=== PATIENT | male | born 1980 ===

== ENCOUNTER 2017-05-28 07:22 | Inpatient (IN) | payer OTHER ==
--- NOTE | 2017-05-28 07:30 | C.PDOC ---
History Of Present Illness 36M c/o constant right side abdominal pain since last night around 8pm. no exac or reliev fx. +nausea and vomiting x1. constipation no diarrhea. last food/ drink last night 7pm. denies any pmh, psh, meds, allergies. Time Seen by Provider: 05/28/17 07:30 Chief Complaint (Nursing): Abdominal Pain Past Medical History Vital Signs: Last Vital Signs Temp 97.7 F 05/30/17 15:00 Pulse 82 05/30/17 15:00 Resp 20 05/30/17 15:00 BP 118/72 05/30/17 15:00 Pulse Ox 97 05/30/17 15:00 Family History: States: Other Other Family History: nc - Social History Hx Alcohol Use: Yes Hx Substance Use: No - Immunization History Hx Tetanus Toxoid Vaccination: No Hx Influenza Vaccination: No Hx Pneumococcal Vaccination: No Review Of Systems Except As Marked, All Systems Reviewed And Found Negative. Constitutional: Positive for: Malaise. Negative for: Fever, Sweats Cardiovascular: Negative for: Chest Pain Respiratory: Negative for: Cough, Shortness of Breath Gastrointestinal: Positive for: Nausea, Vomiting, Abdominal Pain, Constipation. Negative for: Diarrhea Genitourinary: Negative for: Dysuria, Hematuria Physical Exam - Physical Exam Appears: Well, Non-toxic, No Acute Distress Skin: Warm, Dry Head: Atraumatic Eye(s): bilateral: PERRL Nose: No Epistaxis Oral Mucosa: Moist Neck: Normal ROM Cardiovascular: Rhythm Regular Respiratory: No Decreased Breath Sounds, No Accessory Muscle Use Gastrointestinal/Abdominal: Soft, Tenderness (right side, mainly RLQ), No Distention, No Guarding, No Rebound Back: CVA Tenderness (right side) Extremity: No Swelling Neurological/Psych: Oriented x3, Normal Motor, Normal Sensation ED Course And Treatment - Laboratory Results Result Diagrams: 05/29/17 07:26 05/29/17 07:26 O2 Sat by Pulse Oximetry: 98 - CT Scan/US CT abd/pel Other Rad Studies (CT/US): Read By Radiologist, Radiology Report Reviewed CT/US Interpretation: PROCEDURE: CT Abdomen and Pelvis with contrast. HISTORY : Abdominal pain. COMPARISON: None. TECHNIQUE: CT scan of the abdomen and pelvis was performed after intravenous administration of contrast. Oral contrast was not administered. Coronal and sagittal reformatted images were obtained. Contrast dose: 100 mL Visipaque. Radiation dose: Total exam DLP = 507.02 mGy-cm. This CT exam was performed using one or more of the following dose reduction techniques: Automated exposure control, adjustment of the mA and/ or kV according to patient size, and/or use of iterative reconstruction technique. FINDINGS: LOWER THORAX: There is bibasilar subsegmental atelectasis. LIVER: The liver is normal in size and there is homogeneous enhancement. No intrahepatic biliary ductal dilatation. . No gross lesion or ductal dilatation. GALLBLADDER AND BILE DUCTS: There is a solitary large gallstone. The gallbladder is distended without wall thickening or pericholecystic fluid. PANCREAS: The pancreas is normal in size and there is homogeneous enhancement without ductal dilatation or focal mass. SPLEEN: The spleen is normal in size and there is homogeneous enhancement without focal lesion. ADRENALS: Both adrenal glands are normal in size without discrete nodule. KIDNEYS AND URETERS: Both kidneys are normal in size and there is homogeneous enhancement without hydronephrosis. There is a subcentimeter simple cyst in the left lower pole. VASCULATURE: Normal in appearance. No aortic aneurysm. BOWEL: The small bowel loops are normal in caliber. There is moderate amount of stool in the ascending and transverse colon. The left hemicolon is decompressed. APPENDIX: Normal appendix. PERITONEUM: No free fluid. No free air. LYMPH NODES: No enlarged lymph nodes. BLADDER: Unremarkable. REPRODUCTIVE: Unremarkable. BONES: No acute fracture. Within normal limits for the patient's age. OTHER FINDINGS: None. IMPRESSION: Gallbladder is distended and there is a solitary large gallstone. No evidence of wall thickening or pericholecystic fluid however clinical correlation and follow-up is advised as acute calculus cholecystitis is a differential consideration consideration. Medical Decision Making Medical Decision Making: surgical res saw pt in ED- will admit and plan for OR tuesday Disposition - Disposition Disposition: HOSPITALIZED Disposition Time: 12:31 Condition: STABLE - Clinical Impression Clinical Impression: Cholecystitis
[2017-05-28] MEDS ORDERED: Sodium Chloride 0.9% 1,000 ML IV ONE (07:49)
[2017-05-28] MEDS ORDERED: Morphine 4 MG/ML VIAL ONE ×3 (08:01→12:59)
[2017-05-28] MEDS ORDERED: Sodium Chloride 0.9% 1,000 ML ONE (08:01)
[2017-05-28 08:05] LABS: BASO % 0.4 % (0.0-2.0); HEMOGLOBIN 16.8 g/dL (12.0-18.0); LYMPH # 1.1 K/uL (1.0-4.3); LYMPH % 8.8 % (20.0-40.0); MEAN CELL VOLUME 91.2 fL (80.0-94.0); MEAN CORPUSCULAR HEMOGLOBIN 30.9 pg (27.0-31.0); MEAN CORPUSCULAR HGB CONC 33.9 g/dL (33.0-37.0); MEAN PLATELET VOLUME 9.1 fL (7.2-11.7); MONO # 0.7 K/uL (0.0-0.8); MONO % 5.7 % (0.0-10.0); NEUT # 10.5 K/uL (1.8-7.0); NEUT % 85.1 % (50.0-75.0); NRBC % 0.1 % (0.0-2.0); PLATELET COUNT 275 K/uL (130-400); RBC 5.43 Mil/uL (4.40-5.90); RED CELL DISTRIBUTION WIDTH 12.9 % (11.5-14.5); WHITE BLOOD COUNT 12.3 K/uL (4.8-10.8)
[2017-05-28 08:19] LABS: SQUAMOUS EPITHIAL < 1 /hpf (0-5); URINE BILIRUBIN NEGATIVE (NEGATIVE); URINE BLOOD NEGATIVE (NEGATIVE); URINE CLARITY Clear (Clear); URINE COLOR Yellow (YELLOW); URINE GLUCOSE (UA) NORMAL (Normal); URINE LEUKOCYTE ESTERASE NEG Leu/uL (Negative); URINE NITRATE NEGATIVE (NEGATIVE); URINE PROTEIN 1+ mg/dL (NEGATIVE); URINE UROBILINOGEN NORMAL mg/dL (0.2-1.0)
[2017-05-28 08:22] LABS: ALBUMIN 4.6 g/dL (3.5-5.0)
[2017-05-28 08:24] LABS: GFR AFRICAN-AMERICAN > 60; GFR NON-AFRICAN AMERICAN > 60
[2017-05-28 08:25] LABS: ALB/GLOB RATIO 1.2 (1.0-2.1); ALT/SGPT 34 U/L (21-72); AST/SGOT 31 U/L (17-59); BLOOD UREA NITROGEN 15 mg/dL (9-20); CALCIUM 8.9 mg/dl (8.6-10.4); LIPASE 56 U/L (23-300)
[2017-05-28 08:52] LABS: BANDS 1 % (0-2); LYMPHOCYTE 10 % (20-40); MONOCYTE 5 % (0-10); NEUTROPHIL 84 % (50-75); TOTAL CELLS COUNTED 100
[2017-05-28 08:53] LABS: PLATELET ESTIMATE NORMAL (NORMAL)
[2017-05-28] MEDS ORDERED: Iodixanol 320 MG/ML 100 ML BOTTLE IV ONE (09:00)
[2017-05-28] MEDS ORDERED: Sodium Chloride 0.9% 1,000 ML IV SCH (09:30)
--- NOTE | 2017-05-28 10:33 | CT ---
PROCEDURE: CT Abdomen and Pelvis with contrast HISTORY: Abdominal pain COMPARISON: None. TECHNIQUE: CT scan of the abdomen and pelvis was performed after intravenous administration of contrast. Oral contrast was not administered. Coronal and sagittal reformatted images were obtained. Contrast dose: 100 mL Visipaque Radiation dose: Total exam DLP = 507.02 mGy-cm. This CT exam was performed using one or more of the following dose reduction techniques: Automated exposure control, adjustment of the mA and/or kV according to patient size, and/or use of iterative reconstruction technique. FINDINGS: LOWER THORAX: There is bibasilar subsegmental atelectasis. LIVER: The liver is normal in size and there is homogeneous enhancement. No intrahepatic biliary ductal dilatation. . No gross lesion or ductal dilatation. GALLBLADDER AND BILE DUCTS: There is a solitary large gallstone. The gallbladder is distended without wall thickening or pericholecystic fluid. PANCREAS: The pancreas is normal in size and there is homogeneous enhancement without ductal dilatation or focal mass. SPLEEN: The spleen is normal in size and there is homogeneous enhancement without focal lesion. ADRENALS: Both adrenal glands are normal in size without discrete nodule. KIDNEYS AND URETERS: Both kidneys are normal in size and there is homogeneous enhancement without hydronephrosis. There is a subcentimeter simple cyst in the left lower pole. VASCULATURE: Normal in appearance. No aortic aneurysm. BOWEL: The small bowel loops are normal in caliber. There is moderate amount of stool in the ascending and transverse colon. The left hemicolon is decompressed. APPENDIX: Normal appendix. PERITONEUM: No free fluid. No free air. LYMPH NODES: No enlarged lymph nodes. BLADDER: Unremarkable. REPRODUCTIVE: Unremarkable. BONES: No acute fracture. Within normal limits for the patient's age. OTHER FINDINGS: None. IMPRESSION: Gallbladder is distended and there is a solitary large gallstone. No evidence of wall thickening or pericholecystic fluid however clinical correlation and follow-up is advised as acute calculus cholecystitis is a differential consideration consideration.
[2017-05-28] MEDS ORDERED: Piperacillin/Tazobact 3.375 GM in Sodium Chloride 100 ML IVPB STA (10:35)
[2017-05-28] MEDS ORDERED: Sodium Chloride 0.9% 500 ML IV ONE (10:38)
[2017-05-28] MEDS ORDERED: Piperacillin/Tazobact 3.375 gm 100 ML IVPB ONE (10:38)
--- NOTE | 2017-05-28 12:03 | US ---
HISTORY: Abdominal pain COMPARISON: CT abdomen and pelvis performed the same day. TECHNIQUE: Grayscale imaging was performed. FINDINGS: LIVER: Measures 13.5 cm in length. Normal echogenicity of the liver parenchyma. No mass. No intrahepatic bile duct dilatation. GALLBLADDER: There are multiple gallstones. The gallbladder is distended without wall thickening, pericholecystic fluid or positive sonographic Chahal's sign. COMMON BILE DUCT: Measures 5.0 mm. No stones. No dilatation. PANCREAS: Unremarkable as visualized. No mass. No ductal dilatation. RIGHT KIDNEY: Measures 9.0 cm in length. Normal echogenicity. No calculus, mass, or hydronephrosis. AORTA: No aneurysmal dilatation. IVC: Unremarkable. OTHER FINDINGS: None . IMPRESSION: Cholelithiasis and distended gallbladder. No sonographic evidence for acute cholecystitis. Clinical follow-up is advised.
[2017-05-28] MEDS ORDERED: Potassium Chloride 20 mEq ER Tab PO ONE ×2 (17:28→21:45)
[2017-05-28] MEDS ORDERED: Morphine 4 MG/ML VIAL IV PRN (21:31)
--- NOTE | 2017-05-28 21:56 | CP.PCM.HP ---
History of Present Illness - History of Present Illness History of Present Illness: General surgery H & P for Dr. Wilberto Zayas, PGY-1 Pt S & E at bedside this AM. 36yo M w/no sig PMH admitted for acute cholecystitis. Pt reports RUQ abdominal pain onset last night at ~8pm. Onset was sudden, severe, radiates to back and RLQ, sharp. Pt reports previous episodes of similar, associated with oily food intake. Pt reports eating chicken and eggs fried in oil prior to RUQ abdominal pain onset. Admits to nausea & emesis x 1 (nbnb, food stuff), decreased appetite. Denies F/C, SOB, CP, hematemesis, hematochezia, constipation, diarrhea, hematuria, dysuria, headache, vision changes, penile discharge. PMH: Denies PSH: Denies All: Denies SH: admits to ETOH use- 6-7 drinks every 1-2 wks, denies tobacco or illicit drug use FH: Brother and sister with cholelithiasis PMD: Denies Present on Admission - Present on Admission Any Indicators Present on Admission: No History of DVT/PE: No History of Uncontrolled Diabetes: No Urinary Catheter: No Decubitus Ulcer Present: No Review of Systems - Review of Systems All systems: reviewed and no additional remarkable complaints except - Constitutional Constitutional: absent: Chills, Fever - EENT Eyes: absent: Change in Vision - Cardiovascular Cardiovascular: absent: Chest Pain - Respiratory Respiratory: absent: Cough - Gastrointestinal Gastrointestinal: Abdominal Pain, Nausea, Vomiting. absent: Coffee Ground Emesis, Constipation, Diarrhea, Dysphagia, Excessive Flatus, Hematemesis, Hematochezia - Genitourinary Genitourinary: absent: Dysuria, Hematuria - Musculoskeletal Musculoskeletal: Back Pain (R sided) Past Patient History - Past Medical History & Family History Past Medical History?: No - Past Social History Smoking Status: Never Smoked Drugs: Denies - PSYCHIATRIC Hx Substance Use: No - SURGICAL HISTORY Hx Surgeries: No - ANESTHESIA Hx Anesthesia: No Hx Anesthesia Reactions: No Meds Allergies/Adverse Reactions: Allergies Allergy/AdvReac Type Severity Reaction Status Date / Time No Known Allergies Allergy Unverified 05/28/17 07:24 Physical Exam - Constitutional Appears: Non-toxic, No Acute Distress - Head Exam Head Exam: ATRAUMATIC, NORMAL INSPECTION, NORMOCEPHALIC - Eye Exam Eye Exam: EOMI, Normal appearance - ENT Exam ENT Exam: Mucous Membranes Moist, Normal Exam - Neck Exam Neck exam: Positive for: Full Rom, Normal Inspection - Respiratory Exam Respiratory Exam: Clear to Auscultation Bilateral, NORMAL BREATHING PATTERN. absent: Chest Wall Tenderness, Rales, Rhonchi, Wheezes, Respiratory Distress - Cardiovascular Exam Cardiovascular Exam: REGULAR RHYTHM, +S1, +S2 - GI/Abdominal Exam GI & Abdominal Exam: Guarding (over RUQ), Hypoactive Bowel Sounds, Soft, Tenderness (RUQ and RLQ). absent: Distended, Firm, Rebound, Rigid - Rectal Exam Rectal Exam: NORMAL INSPECTION - Extremities Exam Extremities exam: Positive for: full ROM, normal inspection. Negative for: pedal edema, tenderness - Back Exam Back exam: FULL ROM, NORMAL INSPECTION - Neurological Exam Neurological exam: Alert, CN II-XII Intact, Oriented x3 - Psychiatric Exam Psychiatric exam: Normal Affect, Normal Mood - Skin Skin Exam: Dry, Intact, Normal Color, Warm Results - Vital Signs Recent Vital Signs: Last Vital Signs Temp 98.2 F 05/28/17 07:22 Pulse 74 05/28/17 09:00 Resp 20 05/28/17 09:00 BP 140/80 05/28/17 09:00 Pulse Ox 98 05/28/17 11:33 - Labs Result Diagrams: 05/28/17 07:58 05/28/17 07:58 Assessment & Plan - Assessment and Plan (Free Text) Assessment: 32M w/acute cholecystitis Plan: Acute cholecystitis -Admit to surgical service -FLD -NPO after MN on Tuesday night for OR Tuesday -Morphine 4mg Q6H PRN pain -Tylenol 650mg Q6H PRN pain -Zofran 4mg Q6H PRN nausea -Zosyn 3.375gm Q6H -FU CBC, CMP, coags tomorrow -CT abdomen w/ Gallbladder distended, solitary large gallstone. No evidence of wall thickening or pericholecystic fluid however clinical correlation and follow-up is advised as acute calculus cholecystitis is a differential consideration consideration. -RUQ U/S w/Cholelithiasis and distended gallbladder. No sonographic evidence for acute cholecystitis. Clinical follow-up is advised. Hypokalemia K 3.3 K-Dur 40mEq PO x 1 Monitor GI/DVT ppx Pepcid 20mg PO daily Ambulate SCDs Dispo -VS Q8H -OR on Wednesday 05/30 for cholecystectomy -Consent in chart -Call surgical service for any issues -activity ad jayy DW attending Chana PGY-1 - Date & Time Date: 05/28/17 Time: 11:15 Decision To Admit - . Bed Request Type: Regular Admitting Physician: Riccardo Arredondo
[2017-05-28] MEDS: Piperacillin/Tazobact 3.375 GM in Sodium Chloride 100 ML IVPB SCH (22:24)
[2017-05-29] MEDS: Piperacillin/Tazobact 3.375 GM in Sodium Chloride 100 ML IVPB SCH ×4 (04:25→22:17)
--- NOTE | 2017-05-29 07:07 | CP.PCM.PN ---
Subjective - Date & Time of Evaluation Date of Evaluation: 05/29/17 Time of Evaluation: 06:45 - Subjective Subjective: General Sx progress note for Dr. Mandy Zayas, PGY-1 Pt S & E at bedside. Pt reports RUQ pain well controlled overnight. Was able to tolerate FLD. Denies N/V/F/C, SOB, CP. Would like to try eating today. Objective - Vital Signs/Intake and Output Vital Signs (last 24 hours): Temp Pulse Resp BP Pulse Ox 98 F 61 20 108/65 95 05/29/17 04:05 05/29/17 04:05 05/29/17 04:05 05/29/17 04:05 05/28/17 23:15 - Medications Medications: Current Medications Acetaminophen (Tylenol 325mg Tab) 650 mg PO Q6H PRN PRN Reason: Pain, Mild (1-3) Docusate Sodium (Colace) 100 mg PO BID DILCIA Famotidine (Pepcid) 20 mg PO DAILY DILCIA Piperacillin Sod/Tazobactam (Sod 3.375 gm/ Sodium Chloride) 100 mls @ 200 mls/ hr IVPB Q6H DILCIA Last Admin: 05/29/17 04:25 Dose: 200 mls/hr Morphine Sulfate (Morphine) 4 mg IV Q6H PRN PRN Reason: Pain, moderate (4-7) Ondansetron HCl (Zofran Inj) 4 mg IVP Q6H PRN PRN Reason: Nausea/Vomiting - Constitutional Appears: Non-toxic, No Acute Distress - Head Exam Head Exam: ATRAUMATIC, NORMAL INSPECTION, NORMOCEPHALIC - Eye Exam Eye Exam: EOMI, Normal appearance - ENT Exam ENT Exam: Mucous Membranes Moist, Normal Exam - Neck Exam Neck Exam: Full ROM, Normal Inspection - Respiratory Exam Respiratory Exam: Clear to Ausculation Bilateral, NORMAL BREATHING PATTERN. absent: Rales, Rhonchi, Wheezes, Respiratory Distress - Cardiovascular Exam Cardiovascular Exam: REGULAR RHYTHM, +S1, +S2 - GI/Abdominal Exam GI & Abdominal Exam: Soft, Hyperactive Bowel Sounds. absent: Distended, Firm, Guarding, Rigid, Tenderness, Rebound - Extremities Exam Extremities Exam: absent: Pedal Edema, Tenderness - Neurological Exam Neurological Exam: Alert, Awake, CN II-XII Intact, Oriented x3 - Psychiatric Exam Psychiatric exam: Normal Affect, Normal Mood - Skin Skin Exam: Dry, Intact, Normal Color, Warm Assessment and Plan - Assessment and Plan (Free Text) Plan: Cholecystitis vs biliary colic -Advanced to HHD -Morphine 4mg Q6H PRN pain -Tylenol 650mg Q6H PRN pain -Zofran 4mg Q6H PRN nausea -Zosyn 3.375gm Q6H -FU CBC, CMP, coags tomorrow -NPO after MN on Tuesday night for OR Tuesday GI/DVT ppx -Pepcid 20mg PO daily -Encouraged OOBTC/ambulation -SCDs Will DW attending Chana, PGY-1
[2017-05-29 07:36] LABS: BASO % 0.5 % (0.0-2.0); EOS # 0.2 K/uL (0.0-0.7); EOS % 2.4 % (0.0-4.0); LYMPH # 1.9 K/uL (1.0-4.3); MEAN CELL VOLUME 92.3 fL (80.0-94.0); MEAN CORPUSCULAR HEMOGLOBIN 31.3 pg (27.0-31.0); MEAN CORPUSCULAR HGB CONC 33.9 g/dL (33.0-37.0); MEAN PLATELET VOLUME 8.9 fL (7.2-11.7); MONO # 0.6 K/uL (0.0-0.8); MONO % 9.1 % (0.0-10.0); NEUT # 3.8 K/uL (1.8-7.0); NRBC % 0.1 % (0.0-2.0); RBC 4.81 Mil/uL (4.40-5.90); WHITE BLOOD COUNT 6.4 K/uL (4.8-10.8)
[2017-05-29 07:46] LABS: ALBUMIN 3.7 g/dL (3.5-5.0)
[2017-05-29 07:49] LABS: AST/SGOT 23 U/L (17-59); GFR AFRICAN-AMERICAN > 60; GFR NON-AFRICAN AMERICAN > 60; PROTHROMBIN TIME 11.7 SECONDS (9.7-12.2)
[2017-05-29 07:50] LABS: ALB/GLOB RATIO 1.2 (1.0-2.1); ALT/SGPT 28 U/L (21-72); BLOOD UREA NITROGEN 9 mg/dL (9-20); CALCIUM 8.5 mg/dl (8.6-10.4)
[2017-05-30] MEDS: Piperacillin/Tazobact 3.375 GM in Sodium Chloride 100 ML IVPB SCH ×4 (04:38→22:09)
[2017-05-30] MEDS ORDERED: Propofol 10 mg/ml Inj (20 ML) ONE (10:20)
[2017-05-30] MEDS ORDERED: Rocuronium 10 mg/ml (5 ml) ONE (10:20)
[2017-05-30] MEDS ORDERED: Midazolam 2 MG/2 ML VIAL ONE (10:21)
[2017-05-30] MEDS ORDERED: Bupivacaine-Epi 0.25%-1:200,000 PF Inj ONE (10:25)
[2017-05-30] MEDS ORDERED: Lactated Ringer's 1,000 ML IV ONE ×4 (10:35→11:36)
[2017-05-30] MEDS ORDERED: Morphine 4 MG/ML VIAL ONE (11:36)
[2017-05-30] MEDS ORDERED: Neostigmine Methylsulfate 3mg/3ml Syringe IV ONE (11:55)
[2017-05-30] MEDS ORDERED: Oxycodone/Acetaminophen 5/325 mg Tab PO PRN ×2 (12:11)
[2017-05-30] MEDS: HYDROmorphone 0.5 mg/0.5 ml ISec IVP PRN ×2 (12:25→12:36)
--- NOTE | 2017-05-30 12:43 | PCM.SURG1 ---
Surgeon's Initial Post Op Note - Surgeon's Notes Surgeon: Dr. Arredondo Edge Plugger: Dr. Jean PGY3, Dr. Smith PGY2 Type of Anesthesia: General Endo, Local Pre-Operative Diagnosis: acute cholecystitis Operative Findings: se op report Post-Operative Diagnosis: same Operation Performed: laparoscopic cholecystectomy Specimen/Specimens Removed: gallbladder Estimated Blood Loss: EBL {In ML}: 10 Blood Products Given: N/A Drains Used: No Drains Post-Op Condition: Good Date of Surgery/Procedure: 05/30/17 Time of Surgery/Procedure: 12:43
[2017-05-30] MEDS: Lactated Ringer's 1,000 ML IV SCH (20:30)
[2017-05-31] MEDS: Lactated Ringer's 1,000 ML IV SCH ×2 (00:15→06:22)
[2017-05-31] MEDS: Piperacillin/Tazobact 3.375 GM in Sodium Chloride 100 ML IVPB SCH ×2 (04:10→09:31)
[2017-05-31 06:38] LABS: BASO % 0.5 % (0.0-2.0); EOS # 0.2 K/uL (0.0-0.7); EOS % 2.7 % (0.0-4.0); HEMOGLOBIN 14.2 g/dL (12.0-18.0); LYMPH # 1.6 K/uL (1.0-4.3); LYMPH % 23.2 % (20.0-40.0); MEAN CELL VOLUME 91.8 fL (80.0-94.0); MEAN CORPUSCULAR HEMOGLOBIN 31.3 pg (27.0-31.0); MEAN CORPUSCULAR HGB CONC 34.1 g/dL (33.0-37.0); MONO # 0.6 K/uL (0.0-0.8); NEUT # 4.6 K/uL (1.8-7.0); NEUT % 64.6 % (50.0-75.0); NRBC % 0.1 % (0.0-2.0); RBC 4.52 Mil/uL (4.40-5.90); RED CELL DISTRIBUTION WIDTH 13.1 % (11.5-14.5); WHITE BLOOD COUNT 7.1 K/uL (4.8-10.8)
[2017-05-31 07:39] LABS: ALBUMIN 3.2 g/dL (3.5-5.0)
[2017-05-31 07:42] LABS: ALB/GLOB RATIO 1.1 (1.0-2.1); ALT/SGPT 56 U/L (21-72); AST/SGOT 63 U/L (17-59); BLOOD UREA NITROGEN 9 mg/dL (9-20); GFR AFRICAN-AMERICAN > 60; GFR NON-AFRICAN AMERICAN > 60
[2017-05-31 07:43] LABS: CALCIUM 8.4 mg/dl (8.6-10.4)
[2017-05-31] MEDS ORDERED: Enoxaparin 40 mg Syringe SC SCH (10:00)
[2017-05-31 11:50] VITALS: RESP 18
--- NOTE | 2017-05-31 12:43 | CP.PCM.DIS ---
Provider - Provider Date of Admission: 05/28/17 13:02 Attending physician: Riccardo Arredondo MD Time Spent in preparation of Discharge (in minutes): 20 Diagnosis - Discharge Diagnosis (1) Cholecystitis Status: Acute Hospital Course - Lab Results Lab Results: Most Recent Lab Values WBC 7.1 K/uL (4.8-10.8) 05/31/17 06:29 RBC 4.52 Mil/uL (4.40-5.90) 05/31/17 06:29 Hgb 14.2 g/dL (12.0-18.0) 05/31/17 06:29 Hct 41.5 % (35.0-51.0) 05/31/17 06:29 MCV 91.8 fL (80.0-94.0) 05/31/17 06:29 MCH 31.3 pg (27.0-31.0) H 05/31/17 06:29 MCHC 34.1 g/dL (33.0-37.0) 05/31/17 06:29 RDW 13.1 % (11.5-14.5) 05/31/17 06:29 Plt Count 220 K/uL (130-400) 05/31/17 06:29 MPV 9.0 fL (7.2-11.7) 05/31/17 06:29 Neut % (Auto) 64.6 % (50.0-75.0) 05/31/17 06:29 Lymph % (Auto) 23.2 % (20.0-40.0) 05/31/17 06:29 [place] % (Auto) 9.0 % (0.0-10.0) 05/31/17 06:29 Eos % (Auto) 2.7 % (0.0-4.0) 05/31/17 06:29 Baso % (Auto) 0.5 % (0.0-2.0) 05/31/17 06:29 Neut # 4.6 K/uL (1.8-7.0) 05/31/17 06:29 Lymph # 1.6 K/uL (1.0-4.3) 05/31/17 06:29 [place] # 0.6 K/uL (0.0-0.8) 05/31/17 06:29 Eos # 0.2 K/uL (0.0-0.7) 05/31/17 06:29 Baso # 0.0 K/uL (0.0-0.2) 05/31/17 06:29 Neutrophils % (Manual) 84 % (50-75) H 05/28/17 07:58 Band Neutrophils % 1 % (0-2) 05/28/17 07:58 Lymphocytes % (Manual) 10 % (20-40) L 05/28/17 07:58 Monocytes % (Manual) 5 % (0-10) 05/28/17 07:58 Platelet Estimate Normal (NORMAL) 05/28/17 07:58 RBC Morphology Normal 05/28/17 07:58 PT 11.7 SECONDS (9.7-12.2) 05/29/17 07:26 INR 1.0 05/29/17 07:26 APTT 30 SECONDS (21-34) 05/29/17 07:26 Sodium 136 mmol/L (132-148) 05/31/17 06:29 Potassium 3.6 mmol/L (3.6-5.2) 05/31/17 06:29 Chloride 104 mmol/L (98-107) 05/31/17 06:29 Carbon Dioxide 26 mmol/L (22-30) 05/31/17 06:29 Anion Gap 10 (10-20) 05/31/17 06:29 BUN 9 mg/dL (9-20) 05/31/17 06:29 Creatinine 1.1 MG/DL (0.8-1.5) 05/31/17 06:29 Est GFR ( Amer) > 60 05/31/17 06:29 Est GFR (Non-Af Amer) > 60 05/31/17 06:29 Random Glucose 86 mg/dL (75-110) 05/31/17 06:29 Calcium 8.4 mg/dl (8.6-10.4) L 05/31/17 06:29 Total Bilirubin 1.6 mg/dL (0.2-1.3) H 05/31/17 06:29 AST 63 U/L (17-59) H D 05/31/17 06:29 ALT 56 U/L (21-72) 05/31/17 06:29 Alkaline Phosphatase 49 U/L (38-126) 05/31/17 06:29 Total Protein 6.2 g/dL (6.3-8.3) L 05/31/17 06:29 Albumin 3.2 g/dL (3.5-5.0) L 05/31/17 06:29 Globulin 3.0 gm/dL (2.2-3.9) 05/31/17 06:29 Albumin/Globulin Ratio 1.1 (1.0-2.1) 05/31/17 06:29 Lipase 56 U/L (23-300) 05/28/17 07:58 Urine Color Yellow (YELLOW) 05/28/17 07:44 Urine Clarity Clear (Clear) 05/28/17 07:44 Urine pH 5.0 (5.0-8.0) 05/28/17 07:44 Ur Specific [place] 1.031 (1.003-1.030) H 05/28/17 07:44 Urine Protein 1+ mg/dL (NEGATIVE) H 05/28/17 07:44 Urine Glucose (UA) Normal mg/dL (Normal) 05/28/17 07:44 Urine Ketones 1+ mg/dL (NEGATIVE) H 05/28/17 07:44 Urine Blood Negative (NEGATIVE) 05/28/17 07:44 Urine Nitrate Negative (NEGATIVE) 05/28/17 07:44 Urine Bilirubin Negative (NEGATIVE) 05/28/17 07:44 Urine Urobilinogen Normal mg/dL (0.2-1.0) 05/28/17 07:44 Ur Leukocyte Esterase Neg Rai/uL (Negative) 05/28/17 07:44 Urine WBC (Auto) 1 /hpf (0-5) 05/28/17 07:44 Urine RBC (Auto) 2 /hpf (0-3) 05/28/17 07:44 Ur Squamous Epith Cells < 1 /hpf (0-5) 05/28/17 07:44 - Hospital Course Hospital Course: Patient was admitted with the dx of acute cholecystitis. Patient underwent laparoscopic cholecystectomy on 05/30/17. Patient tolerated procedure well. Patient was started on low fat regular diet and po pain medications. Patient tolerated diet, pain controlled, and was ambulating without difficulty. Patient found to be in good stable condition for discharge on POD1. Discharge Exam - Head Exam Head Exam: ATRAUMATIC, NORMAL INSPECTION, NORMOCEPHALIC - ENT Exam ENT Exam: Mucous Membranes Moist - Respiratory Exam Respiratory Exam: NORMAL BREATHING PATTERN. absent: Respiratory Distress - Cardiovascular Exam Cardiovascular Exam: REGULAR RHYTHM. absent: Tachycardia - GI/Abdominal Exam GI & Abdominal Exam: Soft. absent: Distended, Guarding, Rebound, Tenderness - Neurological Exam Neurological exam: Alert, Oriented x3 - Psychiatric Exam Psychiatric exam: Normal Affect, Normal Mood - Skin Skin Exam: Dry, Intact, Normal Color, Warm Discharge Plan - Follow Up Plan Condition: STABLE Disposition: HOME/ ROUTINE Instructions: Cholecystitis (DC), Cholecystitis (GEN), Laparoscopic Cholecystectomy (DC) Additional Instructions: Follow up with Dr. Arredondo in 1-2 weeks. Call office for appointment. Can shower. do not bathe, swim, or submerge incisions in water. Keep clean and dry. Take motrin or tylenol for pain.
[2017-05-31 13:50] VITALS: BP 125/80; PULSE 76; TEMP 98.3; O2SAT 96
--- NOTE | 2017-06-06 12:39 | CARD ---
APPROVED REPORT EKG Measurement Heart [id number] VA [id number] <Conclusion> Sinus bradycardia Cannot rule out Inferior infarct, age undetermined Abnormal ECG
== END 2017-05-31 14:38 | disposition home or self-care (01) | DRG 494 ==
LOC: C.ER 07:22 → C.9E 13:02 → C.6T 13:40
PROVIDERS: ADMIT Surgery; ATTEND Surgery
PROC: 0FT44ZZ Resection of Gallbladder, Percutaneous Endoscopic Approach (ICD-10-PCS; principal; 2017-05-29)
DX: K80.12 Calculus of gallbladder with acute and chronic cholecystitis without obstruction (principal)